=== PATIENT | male | born 2000 | race Caucasian/White ===

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

== ENCOUNTER 2021-09-20 20:22 | Emergency (ER) | payer BC ==
[2021-09-20] MEDS ORDERED: LORazepam 2 MG/ML VIAL IM STA (20:43)
[2021-09-20] MEDS ORDERED: SERTRALINE 50 MG TABLET PO STA (20:44)
--- NOTE | 2021-09-20 20:44 | ED Physician Documentation ---
PD HPI MHE - Stated complaint Stated Complaint: ANXIETY - Chief complaint Chief Complaint: MHE - History obtained from History obtained from: Patient - Additional information Additional information: He lives in [place] and he came home to see family and left his Zoloft at home. He has been out for about 4 days and starting about 2 days ago started developing panic attacks that are quite severe. He denies SI or HI. He took a clonidine prior to arrival that has not been too helpful yet. Review of Systems Constitutional: denies: Fever, Chills Throat: reports: Reviewed and negative Cardiac: reports: Reviewed and negative Respiratory: reports: Reviewed and negative PD PAST MEDICAL HISTORY - Present Medications Home Medications: Ambulatory Orders Medication Instructions Recorded Confirmed LORazepam [Ativan] 1 mg PO TID PRN #10 tablet 09/20/21 Sertraline HCl 200 mg PO QPM 09/20/21 09/20/21 Sertraline [Zoloft] 2 tab PO DAILY #60 tablet 09/20/21 - Allergies Allergies/Adverse Reactions: Allergies Allergy/AdvReac Type Severity Reaction Status Date / Time Penicillins Allergy Unknown Verified 09/20/21 20:36 PD ED PE NORMAL - Vitals Vital signs reviewed: Yes - General General: Alert and oriented X 3, Other (Anxious and tearful, cooperative and coherent though.) - HEENT HEENT: PERRL, EOMI - Neuro Neuro: Alert and oriented X 3, Normal speech - Psych Psych: Normal mood, Normal affect Results - Vitals Vitals: Vital Signs - 24 hr 09/20/21 09/20/21 20:25 21:10 Temperature 36.2 C L Heart Rate 93 84 Respiratory 20 18 Rate Blood Pressure 121/73 108/71 O2 Saturation 98 100 Oxygen O2 Source Room air PD MEDICAL DECISION MAKING - ED course ED course: 21-year-old in a panic attack, probably some element of SSRI withdrawal. He was administered 2 mg of Ativan IM here. And his Zoloft is refilled with a small prescription for Ativan as well. Departure - Departure Disposition: 01 Home, Self Care Clinical Impression: Anxiety attack Condition: Good Record reviewed to determine appropriate education?: Yes Instructions: ED Panic Attack Prescriptions: LORazepam [Ativan] 1 mg PO TID PRN #10 tablet PRN Reason: Anxiety Sertraline [Zoloft] 2 tab PO DAILY #60 tablet Comments: I sent your prescriptions electronically to [facility] in [place]. Tonight for the panic attack you received 2 mg of lorazepam as a shot. I am giving you a prescription for this as well. You cannot drink or drive while taking it. I also refilled your Zoloft. Call your doctor to arrange a follow-up appointment, make the next available appointment. In the interim, return anytime if worse or if new symptoms develop. Discharge Date/Time: 09/20/21 21:17
[2021-09-20 21:16] VITALS: BP 108/71
== END 2021-09-20 21:17 | disposition home or self-care (01) ==
LOC: ED 20:22
DX: F41.1 Generalized anxiety disorder (principal)
CPT/HCPCS: 99282; 99283; A9270; J2060